=== PATIENT | female | born 1955 | race Caucasian/White ===

== ENCOUNTER → 2016-05-31 | Outpatient (CLI) | payer BC, OTHER ==
[~2016-05-31] MED LIST: ALBU1AER9 INH; ASMTWH INH; ASPI-390; CHOL100010 PO; FEXO1TAB58 PO; FLAX1CAP11 PO; HYDR-5688 PO; HYDROEYE PO; MENA1CAP PO; MISCCAP80 PO; MULT-506 PO; PYRI50TA77 PO; VITAMIN D3 PO; ZNTT/150 PO; [UNRECOGNIZED DRUG - OTHER] PO; [UNRECOGNIZED DRUG - OTHER] PO; [UNRECOGNIZED DRUG - OTHER] PO
== END | disposition home or self-care (01) ==
LOC: C.CPL 13:33
PROVIDERS: ATTEND Otolaryngology
DX: Z01.810 Encounter for preprocedural cardiovascular examination (principal)

== ENCOUNTER → 2016-06-06 | Day surgery (SDC) | payer BC, OTHER ==
[2016-05-31 15:11] VITALS: Ht 165.1 cm; Wt 72.3 kg
--- NOTE | 2016-06-05 09:57 | History and Physical: Surg Cnt ---
History & Physical Date Jun 05, 2016. Chief Complaint nose bleeds History of Present Illness The patient is a 61 year old female with complaints of recurrent nose bleeds Additional History Hepatic Disease: No Endocrine Disorder: No Kidney Disease: No Hypertension: No Heart Disease: No Bleeding Tendencies: No Infectious Diseases: No Allergies Coded Allergies: Prochlorperazine (Verified Allergy, Intermediate, RAPID HEARTRATE, 05/31/16 ) Dust (Unverified Allergy, Mild, 05/31/16) Promethazine (Verified Allergy, Mild, ITCHING, 05/31/16) Uncoded Allergies: MOLD (Allergy, Mild, BREATHING PROBLEMS, 05/04/15) POWDER (Allergy, Unknown, REACTIVE AIRWAY DISEASE, 05/03/15) Home Medications Scheduled Albuterol (Proair Hfa), 2 PUFFS INH PRN Flaxseed (Linseed) (Flax Seed Oil), 1 CAP PO BID Menaquinone-7 (Vitamin K2), 1 CAP PO DAILY Mometasone Furoate (Asmanex Twisthaler *), 1 PUFF INH BID Multivitamin (Multivitamin), 1 TAB PO DAILY Probiotic Product (Probiotic), 1 CAP PO BID Pyridoxine Hcl (Vitamin B 6), 50 MG PO DAILY [Pomaria Extract], 565 MG PO 3XWK [Butler Richardson], 2 CAP PO 3XWK [Vitamin D3], 10,000 INTER.UNIT PO DAILY Scheduled PRN Ranitidine (Zantac), 150 MG PO DAILY PRN for ACID REFLUX [Super Dig Enzyme], 2 CAP PO DAILY PRN for PRN Physical Examination Skin: warm/dry, no rash Eyes: normal inspection, EOMI, sclerae normal ENT: normal ENT inspection, pharynx normal Head: normocephalic, atraumatic Neck: supple, no adenopathy, trachea midline Respiratory/Chest: lungs clear, normal breath sounds, no respiratory distress Cardiovascular: regular rate, rhythm, no edema, no murmur Abdomen / GI: normal bowel sounds, non tender Back: normal inspection Extremities: normal inspection, normal range of motion Neurologic/Psych: no motor/sensory deficits, alert, normal reflexes, oriented x 3 Diagnosis epistaxis Plan of Treatment endoscopic cautery
[~2016-06-06] VITALS: Ht 165.1 cm; Wt 72.3 kg
[~2016-06-06] MED LIST changes: -CHOL100010 PO; +EpINEphrine INJ 1MG/ML AMP 1 MG/ML AMP ONE; -HYDROEYE PO; +LACTATED RINGER'S 1000ML 1,000 ML IV SCH; +LIDO 2%/EPINEPHRINE 1:100000 20 ML VIAL INFIL ONE; +OXYCODONE/ACETAMINOPHEN 5-325 TAB PO PRN; +SODIUM CHLORIDE 0.9% 1000ML 1,000 ML IV SCH; +TETRACAINE 4% SOLN TOP ONE; +TETRACAINE 4% TOPICAL SOLUTION TOP ONE; +TETRACAINE 4% TOPICAL SOLUTION TOP SCH
--- NOTE | 2016-06-06 10:48 | History & Physical Bridge Note ---
H&P Re-Evaluation Bridge Note: I have examined the patient, reviewed the History & Physical and in the interval since the performance of the History & Physical I have noted the following changes of clinical significance: No changes noted
--- NOTE | 2016-06-06 12:18 | Discharge Instructions-SurgCtr ---
Discharge Instructions Visit Reason for Visit: Epistaxis Discharge Discharge Diagnosis / Problem: same Discharge Goals Goal(s): Therapeutic intervention Activity Recommendations Activity Limitations: resume your previous activity Anesthesia . Post Anesthesia Instructions: If you have had General Anesthesia or IV Sedation: * Do not drive today. * Resume driving when surgeon permits. * Do not make important decisions or sign legal documents today. * Call surgeon for: 1. Temperature elevations greater than 101 degrees F. 2. Uncontrollable pain. 3. Excessive bleeding. 4. Persistent nausea and vomiting. 5. Medication intolerance (nausea, vomiting or rash). * For nausea and vomiting use only clear liquids such as: tea, soda, bouillon until nausea subsides, then gradually increase diet as tolerated. * If you have any concerns or questions, call your surgeon's office. If physician is unavailable and it is an emergency, call 911 or go to the nearest emergency room. . Instructions / Follow-Up Instructions / Follow-Up ACTIVITY RECOMMENDATIONS: * Being up and around is good, but no strenuous activity, heavy lifting or physical exertion for one week. * Keep your head elevated 30 degrees when lying down or sleeping. * Do not blow your nose for 48 hours, sniff back instead. * Avoid hot showers. OVER THE COUNTER MEDICATIONS: * You may use Tylenol * Avoid aspirin or aspirin containing products, e.g. as they may increase bleeding. SPECIAL CARE INSTRUCTIONS: * Expect to have bloody drainage from your nose and/or down your throat for one to three days. Change drip pad as needed. * Begin irrigating your nose with saline solution today, at least six to ten times per day and sniff back to help remove old clots or crust. * You may experience nasal and facial congestion, pain and pressure, this is normal. * Please call with any significant and/or progressive pain, redness, swelling around the eyes, visual changes, fever of 101.5 degrees F, active bleeding or any problems or concerns. * If active bleeding occurs, spray the nose three times at one minute intervals with Afrin spray and call or cell phone: . If unable to reach the doctor, go to the nearest Emergency Department. Special Diet: * Avoid extremely hot fluids. FOLLOW UP VISIT: Follow-up Visit with Dr. Montes If not already scheduled, please call to schedule. Diet Recommendations Home Diet: no limitations Pending Studies Studies pending at discharge: no Medical Emergencies . Who to Call and When: Medical Emergencies: If at any time you feel your situation is an emergency, please call 911 immediately. . Non-Emergent Contact Non-Emergency issues call your: Primary Care Provider . . "Provider Documentation" section prepared by Tiana Montes. [place] Drug Monitoring Program Search Results: no issues identified
[2016-06-06 13:14] VITALS: TEMP 36.6
[2016-06-06 13:40] VITALS: BP 123/75; PULSE 85; O2SAT 97
--- NOTE | 2016-06-06 14:09 | OPERATIVE REPORT ---
DATE OF OPERATION: 06/06/2016 PREOPERATIVE DIAGNOSIS: Recurrent epistaxis. POSTOPERATIVE DIAGNOSIS: Same. PROCEDURE: Endoscopic cautery. SURGEON: Dr. Montes. ANESTHESIA: A strict local. COMPLICATIONS: None. BLOOD LOSS: Less than 10 mL. HISTORY OF PRESENT ILLNESS: This 61-year-old lady presented with recurrent episodes of the epistaxis, especially on the right side. DESCRIPTION OF PROCEDURE: The patient was brought to the operating room and placed in supine position. She had cottonoids with tetracaine in place from the preoperative area. This was changed out for cottonoids with a mixture of 4 mL of 4% tetracaine mixed with 1 mL of epinephrine. Injection 2% Xylocaine with 1:100,000 strength of epinephrine was also used. Endoscopic cautery was performed. The right mid to posterior septum there was a large area of moderate amount of bleeding which was cauterized. There were 5 other areas that were smaller and that were cauterized on the right side. Posteriorly, there was a very small 3 mm septal perforation from the previous procedure. The previous antrostomy opening from previous sinus surgery were opened. Attention was turned to the left side where approximately 6 sites of bleeding were cauterized along the septum along the left inferior turbinate and also just anterior to the residual left uncinate process. The patient tolerated the procedure well and was taken to recovery area in satisfactory condition. I attest to the content of the Intraoperative Record and any orders documented therein. Any exceptio ns are noted below.
--- NOTE | 2016-06-06 14:30 | Anesthesiology Progress Note ---
Anesthesia Post Op Note Date & Time Jun 06, 2016 at 14:30 Vital Signs Pain Intensity: 0 Vital Signs Past 12 Hours Date Time Temp Pulse Resp B/P Pulse Ox O2 Delivery O2 Flow Rate FiO2 06/06/16 13:40 85 18 123/75 97 Room Air 06/06/16 13:14 36.6 80 16 138/79 100 Room Air 06/06/16 11:06 36.3 90 16 121/77 97 Room Air Notes Mental Status: alert / awake / arousable, participated in evaluation Pt Amnestic to Procedure: Yes Nausea / Vomiting: adequately controlled Pain: adequately controlled Airway Patency, RR, SpO2: stable & adequate BP & HR: stable & adequate Hydration State: stable & adequate Anesthetic Complications: no major complications apparent
== END | disposition home or self-care (01) ==
LOC: X.SURG 10:51
PROVIDERS: ATTEND Otolaryngology
DX: R04.0 Epistaxis (principal); Z88.8 Allergy status to other drugs, medicaments and biological substances